=== PATIENT | male | born 1990 | race Caucasian/White ===

== ENCOUNTER 2021-06-27 09:31 | Day surgery (SDC) | payer OTHER ==
[2021-06-26 15:33] LABS: CLARITY,URINE CLEAR (Clear); COLOR,URINE YELLOW (Yellow); GLUCOSE, URINE NEGATIVE (Neg); KETONES,URINE NEGATIVE (Neg); LEUKOCYTE ESTERASE ,URINE NEGATIVE (Neg); NITRITES, URINE NEGATIVE (Neg); OCCULT BLOOD,URINE NEGATIVE (Neg); PROTEIN,URINE NEGATIVE (Neg); UROBILINOGEN,URINE 0.2 E.U/dL (0.2-1.0)
[2021-06-26 15:35] LABS: BASOPHILS # (AUTO) 0.1 X10'3 (0-0.2); BASOPHILS % (AUTO) 0.5 % (0-1); EOSINOPHILS # (AUTO) 0.3 X10'3 (0-0.9); EOSINOPHILS % (AUTO) 2.2 % (0-6); LYMPHOCYTES # (AUTO) 3.1 X10'3 (1.1-4.8); LYMPHOCYTES % (AUTO) 26.5 % (21-51); MEAN CORPUSCULAR HEMOGLOBIN 27.6 PG (27.0-31.0); MEAN CORPUSCULAR HGB CONC 33.8 g/dL (33.0-36.5); MEAN CORPUSCULAR VOLUME 81.7 FL (78-98); MEAN PLATELET VOLUME 7.8 FL (7.4-10.4); MONOCYTES % (AUTO) 8.5 % (2-12); NEUTROPHILS # (AUTO) 7.3 X10'3 (1.8-7.7); NEUTROPHILS % (AUTO) 62.3 % (42-75); PRE OP HEMATOCRIT 44.6 % (42.0-52.0); PRE OP HEMOGLOBIN 15.1 g/dL (14.0-17.9); PRE OP PLATELET COUNT 411 X10'3 (140-440); RED BLOOD COUNT 5.46 X10'6 (4.70-6.10); RED CELL DISTRIBUTION WIDTH 13.8 % (11.5-14.5)
[2021-06-26 15:42] LABS: UA COLLECTION TYPE CLN CATCH MIDSTREAM
[2021-06-26 15:50] LABS: ALBUMIN 3.8 G/DL (3.4-5.0); ALBUMIN/GLOBULIN RATIO 0.8 (1.1-1.5); ALKALINE PHOSPHATASE 104 IU/L (46-116); BLOOD UREA NITROGEN 13 MG/DL (7-18); BUN/CREATININE RATIO 15.3 (5.4-32.0); CALCIUM 9.6 MG/DL (8.5-10.1); CHLORIDE 105 MMOL/L (99-107); CREATININE 0.85 MG/DL (0.60-1.10); PRE OP ALT 38 U/L (30-65); PRE OP ANION GAP 11 (8-16); PRE OP AST 21 U/L (10-37); PRE OP BILIRUB, TOTAL 0.3 MG/DL (0.0-1.0); PRE OP SODIUM 141 MMOL/L (135-145); TOTAL CARBON DIOXIDE 25.2 MMOL/L (24-32); TOTAL PROTEIN 8.5 G/DL (6.4-8.2); eGFR > 90 ML/MIN
[2021-06-26 15:51] LABS: PRE OP GLUCOSE 97 MG/DL (70-104); PRE OP POTASSIUM 4.4 MMOL/L (3.4-5.1)
[2021-06-27] VITALS (14 sets, daily range): BP systolic 120–147; BP diastolic 63–87
[~2021-06-27] VITALS: Ht 185.4 cm; Wt 145.5 kg
[~2021-06-27 09:31] MED LIST: ASPI-1264 PO; DOCU-21 PO; IBUP-1984 PO; TRAM50TA2 PO; famotidine 20mg tablet PO ONE; ringers solution, lacted 1,000 ML IV SCH
[2021-06-27] MEDS ORDERED: meperidine/PF 25mg/ml syringe IV PRN ×3 (12:15)
[2021-06-27] MEDS ORDERED: morphine 2 MG/ML inj. syringe IV PRN (12:15)
[2021-06-27] MEDS ORDERED: ringers solution, lacted 1,000 ML IV SCH (12:15)
[2021-06-27] MEDS ORDERED: ondansetron/PF 4mg/2ml inj IV PRN (12:15)
[2021-06-27] MEDS ORDERED: proCHLORperazine 10 MG/2 ml inj IV PRN (12:15)
[2021-06-27] MEDS ORDERED: sevoflurane 250ml liquid IH ONE (13:22)
[2021-06-27] MEDS ORDERED: acetaminophen 1000 MG/100ml vial IV ONE (13:22)
[2021-06-27] MEDS ORDERED: ketorolac trometh. 30mg/ml inj. ONE (13:22)
[2021-06-27] MEDS ORDERED: fentaNYL /PF 50mcg/ml 5ml ampule ONE (13:27)
[2021-06-27] MEDS ORDERED: MIDAZolam 1 MG/ML 5ML VIAL ONE (13:27)
[2021-06-27] MEDS ORDERED: BUPIVAcaine 0.5% inj/PF 30 ML ONE (13:29)
[2021-06-27] MEDS ORDERED: propofol inj 20 ML IV ONE (13:29)
[2021-06-27] MEDS ORDERED: dexamethasone sod phosphate 4mg/ml inj. ONE (14:16)
[2021-06-27] MEDS ORDERED: BUPIVAcaine/PF 7.5mg/ml (0.75%) 10ml vial ONE (14:16)
[2021-06-27] MEDS ORDERED: ROPIVAcaine 0.2% (10 MG/5 ML) BOLUS INJECTION POPLITEAL PRN (15:25)
[2021-06-27] MEDS ORDERED: morphine 10mg/ml inj. ONE (15:40)
[2021-06-27] MEDS ORDERED: ROPIVAcaine 0.2%/PF PUMP/bolus 545 ML POPLITEAL SCH (16:00)
[2021-06-27] MEDS ORDERED: ceFAZolin 1000mg inj ONE (18:27)
--- NOTE | 2021-06-27 19:20 | NUR ---
Received from OR via [facility], accompanied by Anesthesiologist DR. COLINDRES and report given by Anesthesiolgist. VSS, ST HR, 10L MASK. LR RUNNING AT 100ML/HR VIA LEFT HAND 20G PIV. LEFT LEG WITH SPLINT AND DONATO BANDAGE. F/C IN PLACE DRAINING YELLOW CLEAR URINE. WILL CONTINUE TO MONITOR.
[2021-06-27] MEDS: morphine 4 MG/ML inj SYRINge IV PRN ×2 (20:03→20:13)
--- NOTE | 2021-06-27 20:41 | NUR ---
REPORTED OFF TO JAMES AND JODY.
[2021-06-27] MEDS ORDERED: oxyCODONE/APAP 5-325mg tablet PO ONE (20:55)
--- NOTE | 2021-06-27 21:27 | NUR ---
PATIENT MEETS DISCHARGE CRITERIA. VVS. DC'D IV NO COMPLICATIONS. DC F/C 75MLS OUT. EDUCATED PATIENT ON USE OF ON Q PUMP AND WENT OVER DISCHARGE PAPERWORK. REENFORCED TEACHING AT PATIENT'S TRUCK WITH AT HIS SIDE. CELL PHONE WITH PATIENT.
== END 2021-06-27 21:27 | disposition home or self-care (01) ==
LOC: PAS 09:31
PROVIDERS: ATTEND Podiatrist Foot & Ankle Surgery
DX: S82.872A Displaced pilon fracture of left tibia, initial encounter for closed fracture (principal); S82.832A Other fracture of upper and lower end of left fibula, initial encounter for closed fracture; G89.18 Other acute postprocedural pain; F17.220 Nicotine dependence, chewing tobacco, uncomplicated; E66.01 Morbid (severe) obesity due to excess calories; Z68.41 Body mass index [BMI] 40.0-44.9, adult; Z91.040 Latex allergy status; Z79.899 Other long term (current) drug therapy; X58.XXXA Exposure to other specified factors, initial encounter; Y93.89 Activity, other specified; Y92.89 Other specified places as the place of occurrence of the external cause; Y99.8 Other external cause status
CPT/HCPCS: 27828; 36415; 64446; 64447; 73600; 76000; 76942; 80053; 81003; 82948; 85025; A6223; C1713; J0131; J0690; J0780; J1100; J1885; J2175; J2250; J2270; J2274; J2405; J2704; J2795; J3010; J3490; J7030; J7060; J7120; S0020; Z7506; Z7508; Z7512; A4618; A6253; A6446; A6449; A7000; C1769

== ENCOUNTER 2022-04-08 05:56 | Day surgery (SDC) | payer OTHER ==
[2022-04-03 11:10] LABS: BASOPHILS % (AUTO) 0.2 % (0-1); CLARITY,URINE CLEAR (Clear); COLOR,URINE YELLOW (Yellow); EOSINOPHILS # (AUTO) 0.1 X10'3 (0-0.9); EOSINOPHILS % (AUTO) 1.5 % (0-6); GLUCOSE, URINE NEGATIVE (Neg); KETONES,URINE NEGATIVE (Neg); LEUKOCYTE ESTERASE ,URINE NEGATIVE (Neg); LYMPHOCYTES # (AUTO) 2.6 X10'3 (1.1-4.8); LYMPHOCYTES % (AUTO) 29.4 % (21-51); MEAN CORPUSCULAR HEMOGLOBIN 28.5 PG (27.0-31.0); MEAN CORPUSCULAR HGB CONC 34.8 g/dL (33.0-36.5); MEAN CORPUSCULAR VOLUME 81.9 FL (78-98); MEAN PLATELET VOLUME 7.7 FL (7.4-10.4); MONOCYTES # (AUTO) 0.6 X10'3 (0-0.9); MONOCYTES % (AUTO) 7.4 % (2-12); NEUTROPHILS # (AUTO) 5.4 X10'3 (1.8-7.7); NEUTROPHILS % (AUTO) 61.5 % (42-75); NITRITES, URINE NEGATIVE (Neg); OCCULT BLOOD,URINE NEGATIVE (Neg); PRE OP HEMATOCRIT 45.6 % (42.0-52.0); PRE OP HEMOGLOBIN 15.9 g/dL (14.0-17.9); PRE OP PLATELET COUNT 294 X10'3 (140-440); PROTEIN,URINE NEGATIVE (Neg); RED BLOOD COUNT 5.57 X10'6 (4.70-6.10); RED CELL DISTRIBUTION WIDTH 13.9 % (11.5-14.5); UROBILINOGEN,URINE 0.2 E.U/dL (0.2-1.0)
[2022-04-03 11:15] LABS: UA COLLECTION TYPE VOIDED
[2022-04-03 11:23] LABS: PRE OP PROTIME 10.5 SECONDS (9.0-12.0)
[2022-04-03 11:24] LABS: ALBUMIN 3.9 G/DL (3.4-5.0); ALBUMIN/GLOBULIN RATIO 0.9 (1.1-1.5); ALKALINE PHOSPHATASE 95 IU/L (46-116); BLOOD UREA NITROGEN 11 MG/DL (7-18); BUN/CREATININE RATIO 14.1 (5.4-32.0); CALCIUM 9.4 MG/DL (8.5-10.1); CHLORIDE 104 MMOL/L (99-107); CREATININE 0.78 MG/DL (0.60-1.10); PRE OP ALT 34 U/L (30-65); PRE OP ANION GAP 8 (8-16); PRE OP AST 19 U/L (10-37); PRE OP BILIRUB, TOTAL 0.3 MG/DL (0.0-1.0); PRE OP GLUCOSE 93 MG/DL (70-104); PRE OP POTASSIUM 4.3 MMOL/L (3.4-5.1); PRE OP SODIUM 137 MMOL/L (135-145); TOTAL CARBON DIOXIDE 25.4 MMOL/L (24-32); TOTAL PROTEIN 8.1 G/DL (6.4-8.2); eGFR > 90 ML/MIN
[2022-04-08] VITALS (21 sets, daily range): BP systolic 93–144; BP diastolic 55–88
[~2022-04-08] VITALS: Ht 185.4 cm; Wt 149.2 kg
[~2022-04-08 05:56] MED LIST changes: -ASPI-1264 PO; -DOCU-21 PO; -IBUP-1984 PO; +MUPI1OIN5 NS; -TRAM50TA2 PO; +ceFAZolin inj. 3,000 MG in normal saline 100ml IV soln 100 ML IV ONE
[2022-04-08] MEDS ORDERED: BUPIVAcaine/PF 5 mg/ml 10ml ONE (06:39)
[2022-04-08] MEDS ORDERED: vancomycin 1,000mg inj ONE (06:39)
[2022-04-08] MEDS ORDERED: bacitracin 15gm ointment TP ONE ×2 (06:39→10:36)
[2022-04-08] MEDS ORDERED: aprepitant 40mg capsule PO ONE (08:09)
[2022-04-08] MEDS ORDERED: sevoflurane 250ml liquid IH ONE (08:40)
[2022-04-08] MEDS ORDERED: cloNIDine hcl/PF 100mcg/ml inj ONE (08:49)
[2022-04-08] MEDS ORDERED: fentaNYL /PF 50mcg/ml 5ml ampule ONE (08:50)
[2022-04-08] MEDS ORDERED: MIDAZolam 1 MG/ML 5ML VIAL ONE (08:50)
[2022-04-08] MEDS ORDERED: ROPIVAcaine 0.5% (5mg/ml) 30ml vial ONE (08:54)
[2022-04-08] MEDS ORDERED: propofol inj 20 ML IV ONE (09:10)
[2022-04-08] MEDS ORDERED: LIDOcaine 1%/PF 5ML 10 MG/ML VIAL ONE (09:10)
[2022-04-08] MEDS ORDERED: dexamethasone sod phosphate 4mg/ml inj. ONE (09:35)
[2022-04-08] MEDS ORDERED: ondansetron/PF 4mg/2ml inj ONE (09:35)
[2022-04-08] MEDS ORDERED: ringers solution, lacted 1,000 ML IV SCH (10:00)
[2022-04-08] MEDS ORDERED: morphine 2 MG/ML inj. syringe IV PRN (10:00)
[2022-04-08] MEDS ORDERED: morphine 4 MG/ML inj SYRINge IV PRN (10:00)
[2022-04-08] MEDS ORDERED: ondansetron/PF 4mg/2ml inj IV PRN (10:00)
[2022-04-08] MEDS ORDERED: meperidine/PF 25mg/ml syringe IV PRN ×3 (10:00)
[2022-04-08] MEDS ORDERED: proCHLORperazine 10 MG/2 ml inj IV PRN (10:00)
[2022-04-08] MEDS ORDERED: acetaminophen 1,000mg/100ml IV 100 ML IV ONE (10:44)
--- NOTE | 2022-04-08 10:58 | NUR ---
Received from OR via [facility] BED TO ROOM [facility] , accompanied by Anesthesiologist DR SNYDER and report given by Anesthesiolgist. PT PRESNTS WITH 20G LEFT FOREARM, DRESSING ON RIGHT FOOT WITH BOOT IN PLACE, VSS. Addendum: 04/08/22 at 1109 by Devi Connell RN, RN Amended: Links added. Addendum: 04/08/22 at 1110 by Devi Connell RN, RN DRESSING ON LEFT FOOT NOT THE RIGHT FOOT.
--- NOTE | 2022-04-08 11:31 | NUR ---
PT GIVEN A BLUE FOAM LEG ELEVATOR AND PLACED UNDER LEFT LEG.
--- NOTE | 2022-04-08 14:28 | NUR ---
PT IV DC'D WITH CANULA INTACT, PT GIVEN BLUE FOAM LEG ELEVATOR FOR USE AT HOME. PT REPORTS THAT HE ALREADY HAS CRUTCHES AT HOME. I HAVE REVIEWED D/C INSTRUCTIONS WITH PATIENT and they have verbalized understanding patient d/c home with all belongings and PT gave transport home. Addendum: 04/08/22 at 1438 by Devi Connell RN, RN Amended: Links added.
== END 2022-04-08 14:28 | disposition home or self-care (01) ==
LOC: UNDOADMIN 05:56 → PAS 05:56 → PAS IN 05:56 → EDSTATUS 08:00 → PAS 14:28
PROVIDERS: ATTEND Podiatrist Foot & Ankle Surgery
DX: T84.84XA Pain due to internal orthopedic prosthetic devices, implants and grafts, initial encounter (principal); E66.01 Morbid (severe) obesity due to excess calories; Z68.41 Body mass index [BMI] 40.0-44.9, adult; F17.220 Nicotine dependence, chewing tobacco, uncomplicated; Z91.040 Latex allergy status; G89.18 Other acute postprocedural pain; Z79.899 Other long term (current) drug therapy; Z79.01 Long term (current) use of anticoagulants; Y83.8 Other surgical procedures as the cause of abnormal reaction of the patient, or of later complication, without mention of misadventure at the time of the procedure; Y92.89 Other specified places as the place of occurrence of the external cause
CPT/HCPCS: 20680; 36415; 64445; 64447; 73600; 76000; 80053; 81003; 82948; 85025; 85610; 85730; 87070; 87075; 87077; 87081; 87186; 93005; A6222; J0131; J0690; J0735; J1100; J2250; J2405; J2704; J2795; J3010; J3490; J7030; J7120; J8501; L4360; Z7506; Z7508; Z7512; A4615; A4618; A6253; A6449; A7000; J3370